=== PATIENT | female | born 1980 | race Caucasian/White ===

== ENCOUNTER → 2017-02-25 | Outpatient (CLI) | payer OTHER ==
--- NOTE | 2017-02-25 15:29 | MR ---
EXAMINATION TYPE: MR brain wo con DATE OF EXAM: 02/25/2017 3:14 PM COMPARISON: NONE HISTORY: Patient having migraines without aura and without status migrainosus, not intractable T1-weighted sagittal, T2, FLAIR, and diffusion axial, and T2 coronal coronal views of the brain are s ubmitted. There is no evidence of acute ischemia. The ventricles, basal cisterns, and sulci overlying the conv exities are consistent with the patient's age. There is no mass effect. Craniocervical junction maintained. Sella turcica has a normal appearance. No cerebellopontine angle mass. Intraorbital structures have a normal appearance. The normal vascular signal voids are maintained. Findings are compatible with mild chronic sinusitis. White matter: There are 3 total white matter lesions all within the right frontal lobe with the largest measuring 6 mm. No lesions perpendicular to the ventricular system. No callosal lesions. No posterior fossa les ions. IMPRESSION: 1. No acute intracranial process. 2. Minimal nonspecific white matter changes within the right frontal lobe. Differential diagnosis wou ld include migraine headaches, hypertension. Remote microvascular ischemia, sarcoidosis, vasculitis o r demyelinating process including a mass not entirely excluded correlate clinically.
== END | disposition home or self-care (01) ==
LOC: RADMRIMAIN 14:03
PROVIDERS: ATTEND Psychiatry & Neurology Neurology
DX: R90.82 White matter disease, unspecified (principal); G43.909 Migraine, unspecified, not intractable, without status migrainosus
CPT/HCPCS: 70551